=== PATIENT | male | born 1945 | race Caucasian/White ===

== ENCOUNTER 2018-02-07 14:30 | Emergency (ER) | payer OTHER, MEDICARE ==
[2018-02-07] MEDS ORDERED: LIDOCAINE HCL 4% TOPICAL SOLN 50ML MM ONE (15:04)
--- NOTE | 2018-02-07 15:04 | EDPHY ---
General Time Seen by Provider: 02/07/18 14:57 Narrative: CHIEF COMPLAINT: Cough HISTORY OF PRESENT ILLNESS: Patient presents by private vehicle with complaints of cough. Cough is been present for approximately 5 days. It is a harsh cough with difficulty stopping the cough when he starts. He has no chest pain but the cough is painful at times. Subjective fever. No chills. No nausea vomiting. No abdominal pain. No diarrhea. No neck pain or stiffness. No headache. He has taken some over- the-counter medications such as Robitussin and NyQuil with some improvement. No other associated complaints or modifying factors REVIEW OF SYSTEMS: 10 systems were reviewed and negative with the exception of the elements mentioned in the history of present illness. PCP: Dr. Brendan Hernández SPECIALISTS: None currently PAST MEDICAL HISTORY: Previous Atrial fibrillation status post ablation PAST SURGICAL HISTORY: No recent surgical history SOCIAL HISTORY: Never smoker. Lives independently. FAMILY HISTORY: Noncontributory EXAMINATION: Vitals: Triage VS reviewed General Appearance: Alert, no distress. Well appearing. Head: normocephalic, atraumatic Eyes: Pupils equal and round, no conjunctival pallor or injection ENT, Mouth: Mucous membranes moist. Uvula midline. Airway widely patent. Neck: Normal inspection, supple, non-tender. no meningismus Respiratory: Scattered rhonchi. Left-sided expiratory wheezing. No crackles or diminishment. No retractions or distress. Normal work of breathing. Cardiovascular: Regular rate and rhythm Gastrointestinal: Abdomen is soft and nontender Back: non-tender, no bony abnormalities Neurological: A&O, nonfocal, normal gait Skin: Warm and dry, no rash Extremities: Nontender, no pedal edema Psychiatric: Mood and affect normal DIFFERENTIAL DIAGNOSES: Including but not limited to bronchitis, viral bronchitis, pneumonia, pneumonitis, influenza MDM: 2:55 p.m. Acute cough of 5 days duration with history exam suggesting bronchitis versus pneumonia. He is well-appearing otherwise. Normal vital signs. No evidence of influenza or systemic illness otherwise. I have ordered chest x-ray, DuoNeb and nebulized lidocaine. His vital signs are within normal limits and he is in no acute distress. 3:30 p.m. Chest x-ray is consistent with his clinical exam, left lower lobe pneumonia. I re-evaluated the patient. He is currently receiving his DuoNeb treatment. Vital signs remained within normal limits. There is no supplemental oxygen requirement. He has no tachycardia, tachypnea fever. We discussed discharge home versus inpatient care he is comfortable going home. I do feel it is reasonable to do so. We discussed Levaquin use given his age in presentation. We discussed the risks associated with Levaquin use including tendinopathy and tendon rupture. We discuss possibility of outpatient failure in close monitoring all comfortable with this plan and discharged home stable condition. First dose of Levaquin given here. SUPERVISION: Patient was independently examined, but I discussed the case with my secondary supervising physician Dr. Ye CONSULTATION: None - Diagnostics Imaging Results: Imaging Impressions Chest X-Ray 02/07/18 15:06 Impression: Left lower lobe pneumonia. - History Smoking Status: Never smoked - Objective Vital Signs: Initial Vital Signs Temperature (C) 98.2 F 02/07/18 14:34 Heart Rate 68 02/07/18 14:34 Respiratory Rate 18 02/07/18 14:34 Blood Pressure 103/85 H 02/07/18 14:34 O2 Sat (%) 95 02/07/18 14:34 O2 Delivery Mode Room Air Allergies/Adverse Reactions: No Known Allergies Allergy (Verified 02/07/18 14:32) Home Medications: Medication Instructions Recorded ANDROGEL 12/22/08 Lovastatin 12/22/08 Paxil 12/22/08 Albuterol [Proventil Inhaler HFA 1 - 2 puffs IH Q4H PRN #1 mdi 02/07/18 (*)] Benzonatate [Tessalon Pearles (RX)] 100 mg PO Q8 PRN #15 cap 02/07/18 levOFLOXACIN [levAQUIN (*)] 750 mg PO DAILY #6 tab 02/07/18 Medications Given: Discontinued Medications Albuterol/Ipratropium (Duoneb) 3 ml IH EDNOW ONE Stop: 02/07/18 15:07 Last Admin: 02/07/18 15:33 Dose: 3 ml Lidocaine HCl (Lidocaine Hcl 4% Topical Solution) 10 ml MM EDNOW ONE Stop: 02/07/18 15:05 Last Admin: 02/07/18 15:20 Dose: Not Given Departure - Departure Disposition: Home, Routine, Self-Care Clinical Impression: Community acquired pneumonia Qualifiers: Laterality: left Lung location: lower lobe of lung Qualified Code(s): J18.1 - Lobar pneumonia, unspecified organism Condition: Good Instructions: Community Acquired Pneumonia (ED) Additional Instructions: 1. Levaquin once daily as prescribed to completion. Take caution with the possible tendon injury that may occur as we discussed. 2. Albuterol inhaler as prescribed as needed for wheezing or shortness of breath 3. Tessalon Perles as prescribed as needed for cough 4. Continue anti-inflammatories and hydration as discussed 5. ED precautions for any worsening symptoms, chest pain, persistent fever, difficulty breathing 6. Contact primary care physician Friday morning for outpatient re-evaluation Referrals: Brendan Hernández MD [Primary Care Provider] - As per Instructions Prescriptions: Albuterol [Proventil Inhaler HFA (*)] 1 - 2 puffs IH Q4H PRN #1 mdi PRN Reason: Short Of Breath/Dyspnea Benzonatate [Tessalon Pearles (RX)] 100 mg PO Q8 PRN #15 cap PRN Reason: Cough, Mild levOFLOXACIN [levAQUIN (*)] 750 mg PO DAILY #6 tab
[2018-02-07] MEDS ORDERED: IPRATROPIUM/ALBUTEROL 3 ML DEYVIAL IH ONE (15:06)
[2018-02-07] MEDS ORDERED: LIDOCAINE 1% *Not for Epidural 20 ML MDV NB ONE (15:07)
[2018-02-07] MEDS ORDERED: LIDOCAINE 4% 5 ML AMP IH ONE (15:30)
[2018-02-07 16:11] VITALS: BP 117/60
== END 2018-02-07 16:13 | disposition home or self-care (01) ==
DX: J18.1 Lobar pneumonia, unspecified organism (principal); Z98.890 Other specified postprocedural states

== ENCOUNTER → 2018-03-20 | Outpatient (CLI) | payer OTHER, MEDICARE | LOC: FLAB 10:51 | PROVIDERS: ATTEND Internal Medicine | DX: J18.1 Lobar pneumonia, unspecified organism (principal) ==

== ENCOUNTER 2018-04-23 22:52 | Emergency (ER) | payer OTHER, MEDICARE ==
--- NOTE | 2018-04-23 23:12 | EDPHY ---
H & P Stated Complaint: cough, sob, recent pneumonia Time Seen by Provider: 04/23/18 23:02 HPI/ROS: Chief Complaint: Cough HPI: 73-year-old male presenting with 2 days of cough which is productive of a clear to whitish sputum. Patient had a pneumonia 2 months ago which started is similarly. He does state that his symptoms today are much milder than his prior visit. No fevers or chills. No nausea or vomiting. No body aches. No shortness of breath or chest pain. His cough is keeping him from sleeping well. ROS: 10 systems were reviewed and were negative except those elements noted in the HPI. PMH: Atrial fibrillation status post ablation, hyperlipidemia, depression Social History: No smoking, occasional alcohol, no recreational drug use Family History: non-contributory Physical Exam: Gen: Awake, Alert, No Distress HEENT: Nose: no rhinorrhea Eyes: PERRLA, EOMI Mouth: Moist mucosa Neck: Supple, no JVD Chest: nontender, lungs clear to auscultation Heart: S1, S2 normal, no murmur Abd: Soft, non-tender, no guarding Back: no CVA tenderness, no midline tenderness Ext: no edema, non-tender Skin: no rash Neuro: CN II-XII intact, Sensation grossly intact, Strength 5/5 in bilateral upper and lower extremities - Personal History Current Tetanus Diphtheria and Acellular Pertussis (TDAP): Yes - Medical/Surgical History Hx Asthma: No Hx Chronic Respiratory Disease: No Hx Diabetes: No Hx Cardiac Disease: Yes Hx Renal Disease: No Hx Cirrhosis: No Hx Alcoholism: No Hx HIV/AIDS: No Hx Splenectomy or Spleen Trauma: No Other PMH: atrial fib/ablation 2016 - Social History Smoking Status: Never smoked Constitutional: Initial Vital Signs Temperature (C) 36.9 C 04/23/18 22:56 Heart Rate 68 04/23/18 22:56 Respiratory Rate 20 04/23/18 22:56 Blood Pressure 153/86 H 04/23/18 22:56 O2 Sat (%) 93 04/23/18 22:56 O2 Delivery Mode Room Air Allergies/Adverse Reactions: No Known Allergies Allergy (Verified 04/23/18 22:55) Home Medications: Medication Instructions Recorded ANDROGEL 12/22/08 Lovastatin 12/22/08 Paxil 12/22/08 Azithromycin [Zithromax] 250 mg PO DAILY #4 tab 04/24/18 Medical Decision Making - Diagnostics Imaging Results: Imaging Impressions Chest X-Ray 04/23/18 23:07 Impression: Mild perihilar bronchitis with questionable new subsegmental atelectasis versus minimal infiltrate at the left lung base. Chest x-ray is normal per my interpretation ED Course/Re-evaluation: 73-year-old male presenting with cough productive of a clear sputum. He is afebrile. He is not tachypneic hypoxemic or tachycardic. Chest x-ray shows perhaps a very mild atelectasis versus early infiltrate in left lung base. Given his history plan will be to give him a treatment of azithromycin as an outpatient. He will follow up with primary care physician. Departure - Departure Disposition: Home, Routine, Self-Care Clinical Impression: Pneumonia Condition: Good Instructions: Community Acquired Pneumonia (ED) Additional Instructions: Follow up with primary care physician in 2-3 days for further evaluation. Return to the emergency department for worsening cough, fevers or chills, shortness of breath, chest pain, or any other concerns. Referrals: Brendan Hernández MD [Primary Care Provider] - As per Instructions Prescriptions: Azithromycin [Zithromax] 250 mg PO DAILY #4 tab
[2018-04-24 00:12] VITALS: BP 115/68
[2018-04-24] MEDS ORDERED: AZITHROMYCIN 250 MG TAB PO ONE (00:18)
== END 2018-04-24 00:29 | disposition home or self-care (01) ==
DX: J18.9 Pneumonia, unspecified organism (principal); I48.91 Unspecified atrial fibrillation; E78.5 Hyperlipidemia, unspecified; Z87.01 Personal history of pneumonia (recurrent)